=== PATIENT | male | born 1930 | race Caucasian/White ===

== ENCOUNTER 2016-12-17 05:30 | Inpatient (IN) | payer OTHER ==
[2016-12-11 13:34] LABS: HEMATOCRIT 46.2 % (42.0-52.0); HEMOGLOBIN 15.7 gm/dL (14.0-18.0); MCH 30.1 pg (26.0-34.0); MCHC 34.1 g/dL (28.0-37.0); MCV 88.3 fL (80.0-100.0); RBC 5.24 mil/uL (4.50-6.00); RDW 15.1 % (10.5-14.5); WBC 5.8 thou/uL (4.0-11.0)
[2016-12-11 13:39] LABS: CALCIUM 9.4 mg/dL (8.5-10.1); POTASSIUM 4.3 mmol/L (3.5-5.1)
[2016-12-11 13:47] LABS: INR 3.1; PROTIME 30.7 Seconds (9.3-11.4)
[2016-12-11 14:50] LABS: URINE BILIRUBIN NEGATIVE (Negative); URINE BLOOD NEGATIVE (Negative); URINE COLOR YELLOW; URINE GLUCOSE-RANDOM* NEGATIVE (Negative); URINE KETONES NEGATIVE (Negative); URINE LEUKOCYTES-REFLEX NEGATIVE (Negative); URINE PROTEIN (DIPSTICK) TRACE (Negative); URINE SPECIFIC GRAVITY 1.025 (1.003-1.035); URINE UROBILINOGEN 0.2 E.U./dl (0.2-1.0)
[2016-12-17] VITALS (12 sets, daily range): BP systolic 12–142; BP diastolic 40–74
[~2016-12-17] VITALS: Ht 198.1 cm; Wt 92.2 kg
--- NOTE | ~2016-12-17 | O ---
[facility] [place] [address] OPERATIVE REPORT Name: MEG SANZ Room #: 150-2 ADM IN M.R.#: [id number] Admission: 12/17/16 Attend Phys: James Deshpande MD Discharge: Date of : 34 Report #: [id number] THIS REPORT FOR: //name// CC: Samson Deshpande DATE OF SURGERY: 12/17/2016. PREOPERATIVE DIAGNOSIS: Left knee medial compartment osteoarthritis. POSTOPERATIVE DIAGNOSIS: Left knee medial compartment osteoarthritis. PROCEDURE: Left unicompartmental knee arthroplasty. SURGEON: James Deshpande MD. PROCESS INSPECTOR: Alana De Leon PA-C. ANESTHESIA: LMA with an adductor canal block. IMPLANTS: Biomet Hubbard twin peg size medium femur, size C tibia and a size 6 polyethylene. TOURNIQUET TIME: 70 minutes. ESTIMATED BLOOD LOSS: 25 mL. COMPLICATIONS: None. SPECIMENS: None. CONDITION UPON LEAVING THE OPERATING ROOM: Stable. INDICATIONS FOR PROCEDURE: The patient is an 86-year-old gentleman with severe left knee medial compartment osteoarthritis. He had failed conservative treatment for this and after discussion with him, he elected for left unicompartmental knee arthroplasty. DESCRIPTION OF PROCEDURE: Risks, benefits, alternatives, complications were discussed in detail with the patient including but not limited to risk of anesthesia, risk of damage to nerves, arteries, blood vessels, risk for infection, bleeding, risk for continued knee pain and need for reoperation. Informed consent was obtained from the patient. Left knee was appropriately marked in the preoperative holding area. He was brought to the operating room and placed in supine position on operating room table. LMA anesthesia was induced without complication. Tourniquet was placed on left thigh. Left lower extremity was prepped and draped in normal sterile fashion. Timeout was [address] [address] OPERATIVE REPORT Name: MEG SANZ Room #: 150-2 ADM IN M.R.#: [id number] Admission: 12/17/16 Attend Phys: James Deshpande MD Discharge: Date of : 32 Report #: [id number] performed properly identifying the patient and procedure as well as the instrumentation and implants. All in the operating room were in agreement. Left lower extremity was exsanguinated, tourniquet was inflated. Tourniquet time was approximately 70 minutes. Standard medial approach knee was made with 10 blade through the skin. Dissection was taken down sharply to the fascia and deep flaps were developed medially and laterally. Fresh 10 blade was used to make a medial parapatellar arthrotomy and the fat pad was removed sharply. The knee was inspected and there was severe medial compartment osteoarthritic change. Lateral compartment and patellofemoral compartment were well maintained. It was decided to proceed with medial compartment arthroplasty. The sizing guide for the femur was placed and this was a size medium. The tibial resection guide was then attached to this and tibial resection guide was pinned in place and tibial resection was made. This was found to be a size C. The flexion gap was fixed with the tibial plate in place. Drill was used to gain access to canal of the femur and intramedullary alignment jovani was placed. The femoral guide for the twin peg system was then placed and aligned appropriately and drill holes were made. The posterior femoral resection was made and the zero spigot was placed and the femur was milled. The femoral trial was placed and was found to be a size 6 in flexion and a size 2 in extension. The size 4 spigot was placed and the femur was milled again and the trial was placed. This balanced the knee well. After this, keel cut for the tibia was placed and the tibial trial and femoral trial was placed, size 6 poly trial was placed and found to have good stability with range of motion. Trial components were removed. Bony ends were thoroughly irrigated with normal saline. A size C tibia and size medium femur were cemented in place using standard cementation techniques. While the cement cured, a periarticular injection consisting of ropivacaine, morphine, epinephrine and Toradol was placed around the knee joint. Final size 6 polyethylene was placed. The fascia was closed with 0 Vicryl, skin was closed with 2-0 Vicryl, 3-0 Monocryl and Steri-Strips as well as an Aquacel dressing was applied. The patient tolerated this procedure well and went to the recovery room under the care of anesthesia postoperatively. By: [id number] James Deshpande MD /ella
[~2016-12-17 05:30] MED LIST: ADVIL PM PO; COUMADIN 4 MG TA4 M1 PO; COUMADIN 5 MG TA5 M1 PO; COUMADIN PO; FELODIPINE ER10 MG PO; FLOMAX0.4 MG PO; JANTOVEN6 MG PO; LISINOPRIL40 MG PO; LOPRESSOR 50 MG50 M1 PO; LOVENOX SQ; MELATONIN1 MG PO; NORCO 5-325 TA1 EACH PO; ZOCOR 20 MG TAB20 M1 PO
[2016-12-17 07:08] LABS: PROTIME 11.6 Seconds (9.3-11.4)
[2016-12-17 07:09] LABS: INR 1.1
[2016-12-18 00:34] VITALS: BP 146/60
[2016-12-18 04:00] VITALS: BP 116/45
[2016-12-18 06:26] LABS: HEMATOCRIT 40.5 % (42.0-52.0); HEMOGLOBIN 13.5 gm/dL (14.0-18.0); MCH 29.8 pg (26.0-34.0); MCHC 33.4 g/dL (28.0-37.0); MCV 89.2 fL (80.0-100.0); RBC 4.54 mil/uL (4.50-6.00); RDW 15.1 % (10.5-14.5); WBC 10.2 thou/uL (4.0-11.0)
[2016-12-18 08:12] VITALS: BP 107/48
[2016-12-18 11:05] VITALS: BP 107/48
[2016-12-18] MEDS ORDERED: PERCOCET PO (12:08)
[2016-12-18] MEDS ORDERED: NEURONTIN 300300 M1 PO (12:08)
[2016-12-18] MEDS ORDERED: MS CONTIN15 MG PO (12:09)
[2016-12-18 12:48] VITALS: BP 107/48
== END 2016-12-18 13:15 | disposition home health service (06) | DRG 470 ==
LOC: 5S 05:30 → TBA 05:30 → PRE 06:32 → 5S 10:23 → PRE 11:51 → 5S 12-18 13:15
PROVIDERS: Orthopaedic Surgery
PROC: 0SRD0J9 Replacement of Left Knee Joint with Synthetic Substitute, Cemented, Open Approach (ICD-10-PCS; principal; 2016-12-17)
DX: M17.12 Unilateral primary osteoarthritis, left knee (principal); I48.91 Unspecified atrial fibrillation; Z96.643 Presence of artificial hip joint, bilateral; Z96.651 Presence of right artificial knee joint; Z79.01 Long term (current) use of anticoagulants; Z87.891 Personal history of nicotine dependence; Z88.8 Allergy status to other drugs, medicaments and biological substances; Z98.52 Vasectomy status; Z82.49 Family history of ischemic heart disease and other diseases of the circulatory system; Z82.61 Family history of arthritis
CPT/HCPCS: 10785; 50010; 50101; 50415; 51130; 51225; 51771; 52056; 52256; 53078; 53370; 54118; 55262; 56527; 56528; 57095; 62110; 62900; 64042; 64043; 70005

== ENCOUNTER 2017-04-25 05:18 | Inpatient (IN) | payer OTHER ==
[2017-04-25] VITALS (10 sets, daily range): BP systolic 110–154; BP diastolic 50–82
[~2017-04-25] VITALS: Ht 198.1 cm; Wt 93.4 kg
--- NOTE | ~2017-04-25 | O ---
[facility] [place] [address] OPERATIVE REPORT Name: SANZMEG MAN Room #: 407-P [facility] IN M.R.#: [id number] Admission: 04/25/17 Attend Phys: James Deshpande MD Discharge: 04/27/17 Date of : 34 Report #: [id number] THIS REPORT FOR: //name// CC: Samson Garimalyla Deshpande DATE OF SERVICE: 04/25/2017 PREOPERATIVE DIAGNOSIS: Dislocated left unicompartmental knee arthroplasty, polyethylene. POSTOPERATIVE DIAGNOSIS: Dislocated left unicompartmental knee arthroplasty, polyethylene. PROCEDURE: Polyethylene exchange, left unicompartmental knee arthroplasty. SURGEON: James Deshpande MD. HAND ROLLER: Alana De Leon PA-C. INDICATIONS FOR ASSISTANCE: Throughout the case, extensive retraction and manipulation of the knee was required. This was afforded to me by my assistant store manager operations. ANESTHESIA: LMA. IMPLANTS: A 7-mm size medium Biomet mobile-bearing polyethylene. TOURNIQUET TIME: 34 minutes. ESTIMATED BLOOD LOSS: 25 mL. COMPLICATIONS: None. SPECIMENS: None. CONDITION UPON LEAVING THE OR: Stable. INDICATION FOR PROCEDURE: The patient is an 87-year-old gentleman who is about 5 months out on left unicompartmental knee arthroplasty. About a week or so ago, he flexed his knee to put on a shoe and felt a pop in his left knee and then has had significant medial pain and grinding sensation. He presented to the office. His x-ray showed a dislocated polyethylene from his unicompartmental knee arthroplasty. After discussion with him, he elected for polyethylene exchange. DESCRIPTION OF PROCEDURE: Risks, benefits, alternatives, complications were [facility] [address] [place] [address] OPERATIVE REPORT Name: SANZMEG MAN Room #: 407-P DIS IN M.R.#: [id number] Admission: 04/25/17 Attend Phys: James Deshpande MD Discharge: 04/27/17 Date of : 34 Report #: [id number] discussed in detail with the patient including but not limited to risk of anesthesia, risk of damage to nerves, arteries, blood vessels, risk for infection, bleeding, risk for continued knee pain and need for reoperation. Informed consent was obtained from the patient. Left knee was appropriately marked in the preoperative holding area. IV Ancef was given for preoperative antibiotics. He was brought to the operating room and placed in the supine position on the operating room table. LMA anesthesia was induced without complications and tourniquet placed in the left thigh. Left lower extremity was prepped and draped in normal sterile fashion. Timeout was performed, properly identifying the patient and procedure as well as the instrumentation. All in the operating room were in agreement. Left lower extremity was exsanguinated, tourniquet was inflated. Tourniquet time was 34 minutes. Previous scar was used, and this was opened with a 10 blade. Dissection was taken down through the fascia, and deep flaps were developed medially and laterally. Fresh 10 blade was used to make a medial parapatellar arthrotomy. Upon entering the joint, there was an extensive amount of normal-appearing joint fluid. This was suctioned out and the polyethylene was sitting in the anterior compartment of the knee. This was removed, and deep retractors were placed. The components were inspected and found to be stable. The knee was then trialed with a size 6 polyethylene trial and then a size 7 trial. Size 7 trial fit well, and this was inspected to see why perhaps the polyethylene dislocated. At about 135 degrees of flexion, the polyethylene, there seemed to be some instability of the polyethylene and the trial was removed. The posterior aspect of the femur was visualized as best we could, and there was no cement or osteophyte back there. Thus, it was felt that we would just place a size 7 polyethylene there and limit his flexion. Final size 7 mm polyethylene was placed, and the knee was taken through range of motion and found to be stable. It was thoroughly irrigated with normal saline, and a gram of vancomycin was placed deep in the knee joint. The deep fascia was closed with 0 Vicryl, skin was closed with 2-0 Vicryl, 3-0 Monocryl. Dermabond and Acticoat dressing were applied. The patient tolerated this procedure well and went to recovery room under care of Anesthesia postoperatively. <ELECTRONICALLY SIGNED> By: James Deshpande MD 05/01/17 [id number] James Deshpande MD /nt
[~2017-04-25 05:18] MED LIST changes: +COUMADIN6 MG PO; +MELATONIN3 MG PO; +MS CONTIN15 MG PO; +NEURONTIN 300300 M1 PO; +PERCOCET PO; +TYLENOL PM EX-1 EACH PO; +VITAMINC500 PO
[2017-04-25 08:54] LABS: INR 1.7; PROTIME 16.8 Seconds (9.3-11.4)
[2017-04-26 03:58] LABS: HEMATOCRIT 42.7 % (42.0-52.0); HEMOGLOBIN 13.8 gm/dL (14.0-18.0); MCH 28.8 pg (26.0-34.0); MCHC 32.4 g/dL (28.0-37.0); MCV 88.7 fL (80.0-100.0); RBC 4.81 mil/uL (4.50-6.00); RDW 15.4 % (10.5-14.5); WBC 6.4 thou/uL (4.0-11.0)
[2017-04-26 04:08] VITALS: BP 103/69
[2017-04-26 08:00] VITALS: BP 122/63
[2017-04-26 11:03] VITALS: BP 122/63
[2017-04-26 12:03] VITALS: BP 122/63
[2017-04-26 20:00] VITALS: BP 133/59
[2017-04-27 03:45] LABS: HEMATOCRIT 41.5 % (42.0-52.0); HEMOGLOBIN 13.5 gm/dL (14.0-18.0); MCH 28.8 pg (26.0-34.0); MCHC 32.5 g/dL (28.0-37.0); MCV 88.6 fL (80.0-100.0); RBC 4.69 mil/uL (4.50-6.00); RDW 15.3 % (10.5-14.5); WBC 8.3 thou/uL (4.0-11.0)
[2017-04-27 04:00] VITALS: BP 146/60
[2017-04-27 04:01] LABS: INR 1.5
[2017-04-27 09:49] VITALS: BP 131/48
== END 2017-04-27 09:35 | disposition home or self-care (01) | DRG 465 ==
LOC: OR 05:18 → TBA 05:19 → 4N 13:01 → OR 13:01 → 4N 04-27 09:35
PROVIDERS: Orthopaedic Surgery
PROC: 0SPD0JC Removal of Synthetic Substitute from Left Knee Joint, Patellar Surface, Open Approach (ICD-10-PCS; principal; 2017-04-25)
PROC: 0SPD0JZ Removal of Synthetic Substitute from Left Knee Joint, Open Approach (ICD-10-PCS; principal; 2017-04-25)
DX: T84.023A Instability of internal left knee prosthesis, initial encounter (principal); Y83.8 Other surgical procedures as the cause of abnormal reaction of the patient, or of later complication, without mention of misadventure at the time of the procedure; Y92.89 Other specified places as the place of occurrence of the external cause
CPT/HCPCS: 10790; 50010; 50101; 50415; 51771; 52256; 54118; 55430; 56527; 56528; 57095; 59999; 62110; 62900; 70005